=== PATIENT | female | born 1995 | race African-American/Black ===

== ENCOUNTER 2019-12-06 09:05 | Emergency (ER) | payer SELFPAY ==
--- NOTE | 2019-12-06 09:19 | ED.GENADULT ---
HPI - General Adult General Chief complaint: Upper Respiratory Infection Stated complaint: sore throat Time Seen by Provider: 12/06/19 09:19 Source: patient Mode of arrival: ambulatory Limitations: no limitations History of Present Illness HPI narrative: 24-year-old female patient presents to the [facility] with complaints of a sore throat x2 to 3 days. Patient denies any fevers that she is aware of. Patient states she has had a little bit of pain that radiates to bilateral ears as well as a little bit of a runny nose. Patient denies any coughing or sneezing. Patient denies any chest pain, shortness of breath, abdominal pain, nausea, vomiting or diarrhea. Patient denies or breast-feeding at this time. Patient states she has had strep throat 2 other times and she is concerned that it could be strep throat. Related Data Allergies Allergy/AdvReac Type Severity Reaction Status Date / Time No Known Allergies Allergy Unknown Verified 06/29/19 12:36 Review of Systems Review of Systems: Narrative: CONSTITUTIONAL: Denies fever, chills, or sweats. EYES: Denies visual changes, redness, or discharge. ENT: Denies rhinorrhea, congestion, positive sore throat, positive bilateral otalgia. CARDIOVASCULAR: Denies chest pain, palpitations, or edema. RESPIRATORY: Denies cough or dyspnea. GASTROINTESTINAL: Denies abdominal pain, nausea, vomiting, or diarrhea. GENITOURINARY: Denies dysuria or hematuria. SKIN: Denies rash or itching. MUSCULOSKELETAL: Denies back pain, joint pain, or myalgia. NEUROLOGIC: Denies headache, numbness, or weakness. PSYCHIATRIC: Denies anxiety or depression. [facility] Past Medical History Medical History Healthy adult Family History Family History Mother Arthritis Father Hypertension Gout Other Breast cancer Social History Social History Smoking status: Never smoker Second hand tobacco smoke exposure: No Alcohol intake: never Comments At the time of my signature I agree with nursing past medical history, surgical, social, and family history. There is no relevant family history pertinent to the presenting complaint. Exam Narrative: Exam Narrative: GENERAL: Well-appearing, well-nourished, and in no acute distress. HEAD: Normocephalic, atraumatic. No tenderness noted to frontal maxillary sinuses on palpation EYES: PERRLA and EOMI. ENT: Nares with erythema and edema noted bilaterally, patent, no rhinorrhea or epistaxis. Mucous membranes moist. Posterior pharynx with some erythema and 1+ tonsil enlargement, no exudates or lesions present. NECK: Supple. No lymphadenopathy CHEST: Clear to auscultation. No respiratory distress. HEART: Regular rate and rhythm. No murmur heard. Normal peripheral pulses. ABDOMEN: Soft, nontender, nondistended, normal active bowel sounds. EXTREMITIES: Normal range of motion. No edema. SKIN: Warm, dry, no rash. NEURO: No focal deficits. Alert and oriented x3. Course Reevaluation(s) Reevaluation #1: Reevaluated patient after her strep test is resulted. Discussed with her that her strep test is positive today and therefore plan of care today is to discharge her home with some antibiotics. Discussed with her I went ahead and wrote her off work for today and tomorrow and that she can return to work on without restrictions. Patient verbalized understanding of this denies any other questions or concerns at this time. Date: 12/06/19 Time: 09:33 Vital Signs Vital signs: Vital Signs Temperature 36.7 C 12/06/19 09:22 Pulse Rate 84 12/06/19 09:22 Respiratory Rate 16 12/06/19 09:22 Blood Pressure 132/54 L 12/06/19 09:22 Pulse Oximetry 100 12/06/19 09:22 Temperature 36.7 C 12/06/19 09:22 Pulse Rate 84 12/06/19 09:22 Respiratory Rate 16 12/06/19 09:22 Blood Pressure 132/54 L
[2019-12-06 09:22] VITALS: BP 132/54; PULSE 84; RESP 16; TEMP 36.7; O2SAT 100
== END 2019-12-06 09:37 | disposition home or self-care (01) ==
PROVIDERS: Emergency Provider Nurse Practitioner Family; PCP Family Medicine
DX: J02.0 Streptococcal pharyngitis (principal)
CPT/HCPCS: 87880; 99213; G0463

== ENCOUNTER 2021-07-07 16:30 | Emergency (ER) | payer BC, SELFPAY ==
--- NOTE | 2021-07-07 16:35 | ED.GENADULT ---
HPI - General Adult General Chief complaint: Upper Respiratory Infection Stated complaint: SCRATCHY THROAT/RUNNY NOSE/COUGH Time Seen by Provider: 07/07/21 16:35 Source: patient Mode of arrival: ambulatory Limitations: no limitations History of Present Illness HPI narrative: 26-year-old female patient presents to the [facility] with complaints of scratchy throat, stuffy nose, runny nose and a mild cough. Patient states that her symptoms started about 2 days ago. Denies fevers, body aches or chills. Denies chest pain, shortness of breath. Patient states she is fully vaccinated against COVID. Patient states she has not tested herself yet for COVID. Related Data Home Medications Medication Instructions Recorded Confirmed No Home Medications 07/07/21 07/07/21 Allergies Allergy/AdvReac Type Severity Reaction Status Date / Time No Known Allergies Allergy Unknown Verified 07/07/21 16:37 Review of Systems Review of Systems: CONSTITUTIONAL: Denies fever, chills, or sweats. EYES: Denies visual changes, redness, or discharge. ENT: Positive rhinorrhea, congestion, and sore throat, denies otalgia. CARDIOVASCULAR: Denies chest pain, palpitations, or edema. RESPIRATORY: Positive cough, denies dyspnea. GASTROINTESTINAL: Denies abdominal pain, nausea, vomiting, or diarrhea. GENITOURINARY: Denies dysuria or hematuria. SKIN: Denies rash or itching. MUSCULOSKELETAL: Denies back pain, joint pain, or myalgia. NEUROLOGIC: Denies headache, numbness, or weakness. PSYCHIATRIC: Denies anxiety or depression. [facility] Past Medical History Medical History (Updated 07/07/21 @ 16:45 by JEFFERY Chung) Healthy adult Strep throat exposure Family History Family History Mother Arthritis Father Hypertension Gout Other Breast cancer Social History Social History Smoking status: Never smoker Second hand tobacco smoke exposure: No Alcohol intake: never Comments At the time of my signature I agree with nursing past medical history, surgical, social, and family history. There is no relevant family history pertinent to the presenting complaint. Exam Narrative: GENERAL: Well-appearing, well-nourished, and in no acute distress. HEAD: Normocephalic, atraumatic. EYES: PERRLA and EOMI. ENT: Nares with erythema and edema noted bilaterally, no rhinorrhea or epistaxis. Mucous membranes moist. Posterior pharynx with no erythema, tonsillar lodgment, exudates or lesions present. Bilateral TMs are clear no erythema or foreign bodies in the canal. NECK: Supple. No lymphadenopathy CHEST: Clear to auscultation. No respiratory distress. HEART: Regular rate and rhythm. No murmur heard. Normal peripheral pulses. ABDOMEN: Soft, nontender, nondistended, normal active bowel sounds. EXTREMITIES: Normal range of motion. No edema. SKIN: Warm, dry, no rash. NEURO: No focal deficits. Alert and oriented x3. Course Course Level of Care: Express Care Visit Vital Signs Vital signs: Vital Signs Temperature 37.1 C 07/07/21 16:38 Pulse Rate 89 07/07/21 16:38 Respiratory Rate 16 07/07/21 16:38 Blood Pressure 145/93 H 07/07/21 16:38 Pulse Oximetry 100 07/07/21 16:38 Temperature 37.1 C 07/07/21 16:38 Pulse Rate 89 07/07/21 16:38 Respiratory Rate 16 07/07/21 16:38 Blood Pressure 145/93 H 07/07/21 16:38 Pulse Oximetry 100 07/07/21 16:38 Vital signs reviewed The patient has been informed that they may have pre-hypertension or Hypertension based on a BP reading in the department. I recommend that the patient call the primary care provider listed on their discharge instructions or a physician of their choice this week to arrange follow up for further evaluation of possible pre-hypertension or Hypertension Medical Decision Making Differential Diagnosis Differential Diagnosis: Differential diagnosis: Allergic
[2021-07-07 16:38] VITALS: BP 145/93; PULSE 89; RESP 16; TEMP 37.1; O2SAT 100
[2021-07-08 19:02] LABS: SARS-CoV-2 RNA PCR Positive
== END 2021-07-07 16:51 | disposition home or self-care (01) ==
PROVIDERS: Emergency Provider Nurse Practitioner Family; PCP Family Medicine
DX: U07.1 COVID-19 (principal)
CPT/HCPCS: 99213; C9803; G0463; U0003; U0005

== ENCOUNTER 2022-03-01 12:11 | Emergency (ER) | payer OTHER, SELFPAY ==
--- NOTE | 2022-03-01 12:13 | ED.EYEPROB ---
HPI - Eye Problem General Chief complaint: Eye Problems Stated complaint: Left Eye Irritation Time Seen by Provider: 03/01/22 12:13 Source: patient Mode of arrival: ambulatory Limitations: no limitations History of Present Illness HPI Narrative: Ms. Chu is a 26-year-old female patient presenting to the clinic today with complaints of left eye irritation times x 1 day. She reports she is having eye discomfort with itching. She reports that she does wear contacts. She has taken these contacts out. No known injury or known foreign body known to me I Related Data Allergies Allergy/AdvReac Type Severity Reaction Status Date / Time No Known Allergies Allergy Unknown Verified 03/01/22 12:14 Review of Systems Review of Systems: Pertinent positives per HPI. Patient denies any fever, chills, rash, headache, visual changes, dizziness, cough, runny nose, sore throat, shortness of breath, chest pain, palpitations, nausea, vomiting, diarrhea, constipation, abdominal pain, or any urinary issues. PMFSH Past Medical History Medical History Healthy adult Strep throat exposure Family History Family History Mother Arthritis Father Hypertension Gout Other Breast cancer Social History Social History Smoking status: Never smoker Second hand tobacco smoke exposure: No Alcohol intake: never Comments At the time of my signature, I reviewed and agree with the nursing past medical, surgical, social, and family history. There is no relevant family history pertinent to the patient complaint. Exam Narrative: General: Well-developed, well nourished, in no apparent distress Head: Normocephalic, atraumatic Eyes: Pupils equally round and reactive to light bilaterally, EOM intact, right sclera and conjunctive clear- no discharge, left sclera and conjunctive a injected with watery discharge coming from the left eye, left eyelids mildly swollen Ears: TMs intact and clear, ear canals clear, no drainage, grossly hearing normal. Nose: Nares patent, no discharge, no inflammation, no sinus tenderness. Mouth: Oropharynx without lesions or masses, good dentition, MMM. Neck: Supple, trachea midline, no enlargement of anterior or posterior cervical nodes, no thyroid masses or goiter palpable. Cardio: Regular rate and rhythm, s1 and s2 normal, no murmur appreciated. Resp: Clear to auscultation bilaterally anteriorly and posteriorly, no rhonchi, rales, wheezing or rubs Course Course Emergency Course: Portions of this record may have been created with voice recognition software. Level of Care: Express Care Visit Vital Signs Vital signs: Vital Signs Temperature 37.3 C 03/01/22 12:22 Pulse Rate 86 03/01/22 12:22 Respiratory Rate 18 03/01/22 12:22 Blood Pressure 144/86 H 03/01/22 12:22 Pulse Oximetry 100 03/01/22 12:22 Oxygen Delivery Room Air 03/01/22 12:22 Temperature 37.3 C 03/01/22 12:22 Pulse Rate 86 03/01/22 12:22 Respiratory Rate 18 03/01/22 12:22 Blood Pressure 144/86 H 03/01/22 12:22 Pulse Oximetry 100 03/01/22 12:22 Oxygen Delivery Room Air 03/01/22 12:22 Vital signs reviewed MDM - Eye Problem MDM Narrative Medical decision making narrative: At the time of visit patient was resting comfortably on the exam table. I suspect patient has acute conjunctivitis of the left eye. I will send in prescription for some ofloxacin eyedrops that she wears contacts supportive measures were discussed with the patient she voiced understanding of discharge instructions and agrees to treatment plan. Differential Diagnosis Differential diagnosis: Likely corneal abrasion, conjunctivitis, acute iritis, periorbital cellulitis, corneal ulcer and ruptured globe Discharge Plan Discharge Clinical Impression: Acute conjun
[2022-03-01 12:22] VITALS: BP 144/86; PULSE 86; RESP 18; TEMP 37.3; O2SAT 100
== END 2022-03-01 12:33 | disposition home or self-care (01) ==
LOC: EXPCOLL 12:15
PROVIDERS: Emergency Provider Nurse Practitioner Family; PCP Family Medicine
DX: H10.32 Unspecified acute conjunctivitis, left eye (principal)
CPT/HCPCS: 99213; G0463

== ENCOUNTER 2025-06-09 18:06 | Emergency (ER) | payer OTHER, SELFPAY ==
[2025-06-09 18:19] VITALS: BP 115/75; PULSE 70; RESP 18; TEMP 36.6; O2SAT 100
--- NOTE | 2025-06-09 18:45 | ED_ITS ---
HPI - Eye Problem General Chief complaint: Eye Problems Stated complaint: Left Eye Irritation Source: patient Mode of arrival: ambulatory Limitations: no limitations History of Present Illness HPI Narrative: this is a 29-year-old female patient who presents to the urgent care with complaints of left eye redness, crusting, and discharge after leaving her contact lens and after a month. Patient states she is supposed to be using them daily, but she leaves him in for days at a time, she has been using the same contact lens in the left eye for the last 8 months. patient denies any other distress or concerns. She states last night her left eye began to water and become red, she decided to remove the contacts. She states that her eye began crusting, and having thick yellow drainage. She states that is continued to have increasing. It is not itching and irritating. She has had conjunctivitis to contact lens overuse before. She denies any double vision changes in her vision headache or dizziness. chief complaint: eye pain and eye redness Onset (ago): day(s) (1) Onset description: gradual Duration: constant Location: left eye Eye Symptoms: redness, itching and discharge Place: home Mechanism: other ( Contact lens overuse) Associated symptoms: none Treatments Prior to Arrival: none Related Data Allergies Allergy/AdvReac Type Severity Reaction Status Date / Time No Known Allergies Allergy Unknown Verified 06/09/25 18:38 Review of Systems Review of Systems: All systems reviewed & are unremarkable except as noted in HPI and below PMFSH Past Medical History Medical History Strep throat exposure Healthy adult Family History Family History Mother Arthritis Father Hypertension Gout Other Breast cancer Social History Social History Smoking status: Never smoker Second hand tobacco smoke exposure: No Alcohol intake: current Drinks per week: 3 Substance use: never Substance use type: does not use Lack of Transportation: No Lack of Food: Never True Current Housing: I Have Housing Concerned About Future Housing: No Difficulty Paying Gas/Electric Bills: No Difficulty Paying for Meds: No Currently Unemployed: No Education: Trade/Vocational Certificate Difficulty w/ Childcare or Family Care: No Living arrangements: alone Occupation/Education: occupation Gender identity (if verbalized by the patient): Female Sexual Orientation (if Verbalized by the Patient): Straight or Heterosexual Spiritual care concerns: No Agree to blood products: Yes Exam Const: General: healthy appearing Nutritional Appearance: well nourished Orientation/consciousness: patient oriented x3 Limitations: no limitations HENMT: Head: normal to inspection Ears: external ears normal Face/Nose/Sinus: Normal external nose present Face and sinus: normal facial exam Mouth: Yes Normal oral and palatal mucosa present Teeth and gingiva: dentition normal Throat: posterior oropharynx normal Eyes: Conjunctivae: conjunctival abnormality left conjunctival injection diffuse and discharge purulent Pupils: Equal, round and reactive pupils present EOM: EOMs intact bilaterally Neck: Neck: normal visual inspection Chest: Chest palpation & inspection: normal inspection of the chest Resp: Effort & Inspection: normal respiratory effort Auscultation: clear to auscultation bilaterally Cardio: Rate: regular rate Rhythm: regular rhythm GI: GI Palp: Yes Soft to palpation Auscultation: normal bowel sounds Back/Spine/Pelvis: Back: no CVA tenderness Skin: General skin exam: normal color Rashes: no rashes Wounds: no wounds Neuro: General: patient oriented x3 Cranial nerves: Yes Nystagmus not present Speech: normal speech Extrem: General: normal to inspection and no clubbing, cyanosis or edema Psych: Mental Status: mental status grossly normal Affect: normal affect Attitude: cooperative Course Course Emergency Course: this is a 29-year-old female patient who presents to the urgent care with complaints of left eye redness, crusting, and discharge after leaving her contact lens and after a month. Patient states she is supposed to be using them daily, but she leaves him in for days at a time, she has been using the same contact lens in the left eye for the last 8 months. patient denies any other distress or concerns. She states last night her left eye began to water and become red, she decided to remove the contacts. She states that her eye began crusting, and having thick yellow drainage. She states that is continued to have increasing. It is not itching and irritating. She has had conjunctivitis to contact lens overuse before. She denies any double vision changes in her vision headache or dizziness. vital signs stable educated patient on exam findings, treatment, and management. Educated on correct contact lens use and management. Educated on outpatient follow-up with parts identifier. She verbalized understanding answered all questions to her satisfaction she is agreeable plan. Educated the patient to cleanse eye with Kojo's baby shampoo twice daily, apply eyedrops as prescribed, avoid use of contacts for the next 2 days, use contact as prescribed, follow-up with her primary care provider as needed, follow-up with parts identifier as needed, return to the emergency department a worrisome sign or symptom. patient denies any further needs or concerns to be addressed prior to discharge. Level of Care: Express Care Visit Vital Signs Vital signs: Vital Signs Temperature 97.9 F 06/09/25 18:19 Pulse Rate 70 06/09/25 18:19 Respiratory Rate 18 06/09/25 18:19 Blood Pressure 115/75 06/09/25 18:19 Pulse Oximetry 100 06/09/25 18:19 Oxygen Delivery Room Air 06/09/25 18:19 Temperature 97.9 F 06/09/25 18:19 Pulse Rate 70 06/09/25 18:19 Respiratory Rate 18 06/09/25 18:19 Blood Pressure 115/75 06/09/25 18:19 Pulse Oximetry 100 06/09/25 18:19 Oxygen Delivery Room Air 06/09/25 18:19 MDM MDM Narrative Medical decision making narrative: this is a 29-year-old female patient who presents to the urgent care with complaints of left eye redness, crusting, and discharge after leaving her contact lens and after a month. Patient states she is supposed to be using them daily, but she leaves him in for days at a time, she has been using the same contact lens in the left eye for the last 8 months. patient denies any other distress or concerns. She states last night her left eye began to water and become red, she decided to remove the contacts. She states that her eye began crusting, and having thick yellow drainage. She states that is continued to have increasing. It is not itching and irritating. She has had conjunctivitis to contact lens overuse before. She denies any double vision changes in her vision headache or dizziness. vital signs stable educated patient on exam findings, treatment, and management. Educated on correct contact lens use and management. Educated on outpatient follow-up with parts identifier. She verbalized understanding answered all questions to her satisfaction she is agreeable plan. Educated the patient to cleanse eye with Kojo's baby shampoo twice daily, apply eyedrops as prescribed, avoid use of contacts for the next 2 days, use contact as prescribed, follow-up with her primary care provider as needed, follow-up with parts identifier as needed, return to the emergency department a worrisome sign or symptom. patient denies any further needs or concerns to be addressed prior to discharge. Differential Diagnosis Differential Diagnosis: Conjunctivitis, Medical Records I have reviewed the following patient records and this information was taken into consideration when formulating the assessment and plan.: previous clinic v [facility] Discharge Plan Discharge Clinical Impression: Bacterial conjunctivitis Patient Disposition: Home Condition: Stable Instructions: Antibiotic Form, Conjunctivitis (ED) Additional Instructions: cleanse eye with Kojo's baby shampoo twice daily apply eyedrops as prescribed avoid use of contacts for the next 2 days use contact as prescribed follow-up with her primary care provider as needed follow-up with parts identifier as needed return to the emergency department a worrisome sign or symptom Patient Language: Togolese Prescriptions: New neomycin-polymyxin B-dexameth 3.5mg/mL-10,000 unit/mL-0.1 % drops,suspension 1 drp LEFT EYE Q6H 5 Days Qty: 5 0RF No Action Wegovy 2.4 mg/0.75 mL pen injector 2.4 mg subcut WEEKLY Qty: 3 0RF Follow-up/Referrals: Nelson,MD Vivienne [Primary Care Provider, [facility]] Time of Disposition: 18:47
== END 2025-06-09 18:55 | disposition home or self-care (01) ==
PROVIDERS: Emergency Provider Nurse Practitioner Family; PCP Family Medicine
DX: H10.9 Unspecified conjunctivitis (principal)
CPT/HCPCS: 99213; G0463